=== PATIENT | female | born 1990 | race Caucasian/White ===

== ENCOUNTER 2020-10-06 14:20 | Inpatient (IN) | payer BC ==
[2020-10-06] MEDS ORDERED: AMPICILLIN 2,000 MG in SODIUM CHLORIDE 0.9% 100 ML IVPB STA (15:22)
[2020-10-06] MEDS ORDERED: CARBOPROST TROMETHAMINE 250 MCG/ML 1 ML AMP IM PRN (15:22)
[2020-10-06] MEDS ORDERED: OXYTOCIN 10 UNIT/ML 1 ML VIAL IM PRN (15:22)
[2020-10-06] MEDS ORDERED: METHYLERGONOVINE 0.2 MG/ML 1 ML AMP IM PRN (15:22)
[2020-10-06] MEDS ORDERED: TERBUTALINE 1 MG/ML VIAL SQ PRN (15:22)
[2020-10-06] MEDS ORDERED: LIDOCAINE 0.5% (PF) 5 MG/ML (50 ML SDV) SQ PRN (15:22)
[2020-10-06] MEDS ORDERED: LACTATED RINGERS 1,000 ML IV SCH (15:30)
[2020-10-06] MEDS: LACTATED RINGERS 1,000 ML IV SCH ×2 (15:50→19:44)
[2020-10-06 16:27] LABS: Basophils % (A) 0 %; Eosinophils # (A) 0.1 k/uL (0-0.7); Eosinophils % (A) 1 %; HCT 41.8 % (34.0-46.0); HGB 13.6 gm/dL (11.4-16.0); Lymphocytes # (A) 2.1 k/uL (1.0-4.8); Lymphocytes % (A) 15 %; MCH 28.5 pg (25.0-35.0); MCHC 32.5 g/dL (31.0-37.0); MCV 87.7 fL (80.0-100.0); Mean Platelet Volume 8.7; Monocytes # (A) 0.5 k/uL (0-1.0); Monocytes % (A) 3 %; Neutrophils # (A) 11.6 k/uL (1.3-7.7); Neutrophils % (A) 80 %; Platelet Count 293 k/uL (150-450); RBC 4.77 m/uL (3.80-5.40); RDW 14.9 % (11.5-15.5); WBC 14.5 k/uL (3.8-10.6)
[2020-10-06 16:33] LABS: Appearance,Urine Clear (Clear); Bacteria,Urine Rare /hpf; Bilirubin,Urine Negative (Negative); Blood,Urine Large (Negative); Color,Urine Yellow; Glucose,Urine (UA) Negative (Negative); Ketones,Urine 1+ (Negative); Leukocyte Esterase,Urine Trace (Negative); Mucus,Urine Occasional /hpf; Nitrite,Urine Negative (Negative); Protein,Urine 1+ (Negative); RBC,Urine 140 /hpf (0-5); Specific Gravity,Urine 1.026 (1.001-1.035); Squamous Epithelial Cell,Urine 5 /hpf (0-4); Urobilinogen,Urine <2.0 mg/dL (<2.0); WBC,Urine 10 /hpf (0-5)
[2020-10-06 16:34] LABS: ALT 25 U/L (4-34); AST 38 U/L (14-36); African American GFR (CKD) >90 (>60 ml/min/1.73 sqM); Blood Urea Nitrogen 8 mg/dL (7-17); LDH 617 U/L (313-618); Non-African American GFR(CKD) >90 (>60 ml/min/1.73 sqM)
[2020-10-06 16:40] LABS: Creatinine,Urine Random 212.3 mg/dL; Protein/Creatinine Ratio,Urine 0.141
[2020-10-06] MEDS: OXYTOCIN 30 UNITS/500 ML NS 30 UNIT in SALINE 1 500ML.BAG IV SCH (16:52)
[2020-10-06 17:05] LABS: Glucose,Whole Blood 78 mg/dL (75-99)
[2020-10-06] MEDS ORDERED: SODIUM CHLORIDE 0.9% 100 ML BAG ONE (19:15)
[2020-10-06] MEDS ORDERED: ROPIVACAINE 5MG/ML 20ML VIAL ONE (19:15)
[2020-10-06] MEDS ORDERED: fentaNYL (PF) 50 MCG/ML 5 ML AMP ONE (19:15)
[2020-10-06] MEDS: AMPICILLIN 1,000 MG in SODIUM CHLORIDE 0.9% 50 ML IVPB SCH (20:42)
[2020-10-07] MEDS ORDERED: diphenhydrAMINE 25 MG CAP PO PRN (00:08)
[2020-10-07] MEDS ORDERED: LANOLIN CREAM 5 GM TUBE TOPICAL PRN (00:08)
[2020-10-07] MEDS ORDERED: BENZOCAINE/MENTHOL SPRAY 1 GM/SPRAY AEROSOL TOPICAL PRN (00:08)
[2020-10-07] MEDS ORDERED: diphenhydrAMINE 50 MG/ML 1 ML VIAL IVP PRN ×2 (00:08)
[2020-10-07] MEDS ORDERED: diphenhydrAMINE 50 MG CAP PO PRN (00:08)
[2020-10-07] MEDS ORDERED: SIMETHICONE 80 MG CHEWABLE PO PRN (00:08)
[2020-10-07] MEDS ORDERED: HYDROCORTISONE 2.5% RECTAL CREAM 30 GM TUBE RECTAL PRN (00:08)
[2020-10-07] MEDS ORDERED: ZOLPIDEM 5 MG TAB PO PRN (00:08)
[2020-10-07] MEDS ORDERED: IBUPROFEN 600 MG TAB PO PRN (00:08)
--- NOTE | 2020-10-07 00:11 | P.HPOB ---
History of Present Illness H&P Date: 10/07/20 Chief Complaint: rupture of membranes Clarisse is a 30-year-old at 36 weeks gestation who ryes in labor following spontaneous rupture membranes earlier today. Her fluid has been noted. An Essure was positive. She is dilated 2-3 cm and 80% effaced. She is annie irregularly but is annie. Her course had been, K by gestational diabetes mellitus A1. She has been followed with maternal medicine has had nonstress test and very close monitoring throughout the latter part of the . She does have a group B strep positive status and antibiotics will be provided. Pertinent labs do include O+ blood type Rh and it was negative, rubella is immune, hepatitis B surface antigen was negative. She plans to use an epidural for analgesia. We'll plan Pitocin augmentation of labor. Spec spontaneous vaginal delivery. Category 1 tracing is noted. Past Medical History Past Medical History: No Reported History History of Any Multi-Drug Resistant Organisms: None Reported Past Surgical History: No Surgical Hx Reported Past Anesthesia/Blood Transfusion Reactions: No Reported Reaction Past Psychological History: No Psychological Hx Reported Smoking Status: Former smoker Past Drug Use History: None Reported - Past Family History Father Family Medical History: No Reported History Medications and Allergies Home Medications Medication Instructions Recorded Confirmed Type Pnv,Calcium 72/Iron/Folic Acid 1 each PO DAILY MDD 1 tab 10/06/20 10/06/20 History [ Plus Tablet] Allergies Allergy/AdvReac Type Severity Reaction Status Date / Time No Known Allergies Allergy Verified 10/06/20 15:19 Exam Osteopathic Statement: *. No significant issues noted on an osteopathic structural exam other than those noted in the History and Physical/Consult. Vital Signs Temp Pulse Resp BP Pulse Ox 10/06/20 16:15 97.6 F 111 H 18 136/88 99 10/06/20 14:30 97.6 F 111 H 18 136/88 99 Intake and Output 10/06/20 10/06/20 10/07/20 14:59 22:59 06:59 Output Total 200 Balance -200 Output: Urine 200 Other: Weight 107.501 kg - OBG Physical Exam Breast: both: normal (no masses) Abdomen: bowel sounds normal, no diffuse tenderness, no bruit present, no guarding noted, no hepatomegaly, no splenomegaly, no mass Vulva: both: normal Vagina: normal moisture, no discharge Cervix: no lesion, no discharge Uterus: normal size, normal contour Adnexa: both: normal Anus/Rectum: normal perianal skin, no rectal mass, no hemorrhoids, heme negative Results Result Diagrams: 10/06/20 16:05 10/06/20 16:05 Abnormal Lab Results - Last 24 Hours (Table) 10/06/20 10/06/20 10/06/20 Range/Units 15:50 16:05 16:05 WBC 14.5 H (3.8-10.6) k/uL Neutrophils # 11.6 H (1.3-7.7) k/uL AST 38 H (14-36) U/L Urine Protein 1+ H (Negative) Urine Ketones 1+ H (Negative) Urine Blood Large H (Negative) Ur Leukocyte Esterase Trace H (Negative) Urine RBC 140 H (0-5) /hpf Urine WBC 10 H (0-5) /hpf Ur Squamous Epith Cells 5 H (0-4) /hpf Urine Bacteria Rare H (None) /hpf Urine Mucus Occasional H (None) /hpf
--- NOTE | 2020-10-07 00:13 | P.PROBDLV ---
Vaginal Delivery Note - . Vaginal Delivery Note: Patient progressed complete and pushing with spontaneous vaginal delivery of a viable female over first repair perineal laceration. Following delivery of the head anterior posterior shoulders were easily delivered with gentle downward upper traction from right occiput anterior position. Once baby was fully delivered mouth nares were bulb suctioned and baby was placed on mother's abdomen where the umbilical cord was allowed to pulsate for 45 seconds prior to clamping and cutting. Nursery personnel was present to some care. Placenta was then delivered intact. Pitocin was added to the IV. First degree perineal laceration was then repaired with 3-0 Vicryl following 1% Xylocaine for analgesia. scores were 9 and 9 at one and 5 minutes respectively and the weight was 5 lbs. 11 oz. Both mother and baby are stable following delivery.
[2020-10-07] MEDS: OXYTOCIN 30 UNITS/500 ML NS 30 UNIT in SALINE 1 500ML.BAG IV SCH (00:22)
[2020-10-07] MEDS: AMPICILLIN 1,000 MG in SODIUM CHLORIDE 0.9% 50 ML IVPB SCH (01:34)
[2020-10-07] MEDS: ACETAMINOPHEN TAB 325 MG TAB PO PRN ×3 (03:18→20:24)
--- NOTE | 2020-10-07 06:43 | P.PNOBGVD ---
Subjective - Subjective Patient reports: Reports appetite normal, Reports voiding normally, Reports pain well controlled, Reports ambulating normally : doing well Objective - Latest Vital Signs Latest vital signs: Vital Signs Temp Pulse Resp BP Pulse Ox 10/07/20 04:20 98.1 F 94 16 137/70 98 10/07/20 02:14 98.3 F 111 H 16 149/68 97 10/07/20 01:30 102 H 16 142/65 10/07/20 01:00 104 H 16 120/69 99 10/07/20 00:45 108 H 16 125/75 10/07/20 00:30 98.7 F 105 H 16 120/64 10/07/20 00:20 120 H 10/07/20 00:15 116 H 129/68 10/07/20 00:00 120 H 16 131/72 10/06/20 16:15 97.6 F 111 H 18 136/88 99 10/06/20 14:30 97.6 F 111 H 18 136/88 99 Intake and Output 10/06/20 10/06/20 10/07/20 14:59 22:59 06:59 Intake Total 7.5 Output Total 400 Balance -392.5 Intake: Intake, IV Titration 7.5 Amount Oxytocin 30 Units/500 ml 7.5 Ns 30 unit In Saline 1 500ml.bag @ Per Protocol IV .Q0M [facility] Rx#:[id number] Output: Urine 200 Estimated Blood Loss 200 Other: Weight 107.501 kg - Exam Lungs: bilateral: normal Chest: Normal S1, Normal S2 Extremities: Present: normal Abdomen: Present: normal appearance, soft Uterus: Present: normal, firm - Labs Labs: Abnormal Lab Results - Last 24 Hours (Table) 10/06/20 10/06/20 10/06/20 Range/Units 15:50 16:05 16:05 WBC 14.5 H (3.8-10.6) k/uL Neutrophils # 11.6 H (1.3-7.7) k/uL AST 38 H (14-36) U/L Urine Protein 1+ H (Negative) Urine Ketones 1+ H (Negative) Urine Blood Large H (Negative) Ur Leukocyte Esterase Trace H (Negative) Urine RBC 140 H (0-5) /hpf Urine WBC 10 H (0-5) /hpf Ur Squamous Epith Cells 5 H (0-4) /hpf Urine Bacteria Rare H (None) /hpf Urine Mucus Occasional H (None) /hpf Assessment and Plan Assessment: Post day #1. Patient is resting without complaints. Vital signs are stable she is afebrile. Uterus is firm nontender and she is having normal lochia. My impression this is a normal course. Plan is to continue routine care will need to discharge home tomorrow (1) Normal vaginal delivery Current Visit: Yes Status: Acute Code(s): O80 - ENCOUNTER FOR FULL-TERM UNCOMPLICATED DELIVERY SNOMED Code(s): 74070459
[2020-10-07] MEDS: SENNOSIDES-DOCUSATE SODIUM 1 EACH TAB PO SCH ×2 (21:42→21:45)
--- NOTE | 2020-10-08 06:05 | P.PROBDLV ---
Vaginal Delivery Note - . Vaginal Delivery Note: Post Day #2. Patient is resting without complaints and wishes to go home. Vital signs are stable and she is afebrile. Plan is to continue routine care and discharge home later today.
--- NOTE | 2020-10-08 06:13 | P.DS ---
Providers Date of admission: 10/06/20 15:22 Expected date of discharge: 10/08/20 Attending physician: Jono Edward Primary care physician: Jono Edward - Discharge Diagnosis(es) (1) Normal vaginal delivery Current Visit: Yes Status: Acute Hospital Course: Please see dictated H&P for intimate details of this patients admission. Patient is admitted with PROM at 36wks and goes on to have a vaginal delivery of viable female infant. Discharged home on PPD #2 to followup with me in ~6 weeks. Procedures: Normal spontaneous vaginal delivery Patient Condition at Discharge: Good Plan - Discharge Summary Discharge Rx Participant: No New Discharge Prescriptions: New Ibuprofen [Motrin] 600 mg PO Q6HR PRN #30 tab PRN Reason: Mild Pain Or Fever >= 100.5 No Action Pnv,Calcium 72/Iron/Folic Acid [ Plus Tablet] 1 each PO DAILY MDD 1 tab Discharge Medication List Pnv,Calcium 72/Iron/Folic Acid [ Plus Tablet] 1 each PO DAILY MDD 1 tab 10/06/20 [History] Ibuprofen [Motrin] 600 mg PO Q6HR PRN #30 tab 10/08/20 [Rx] Follow up Appointment(s)/Referral(s): Jono Edward MD [Primary Care Provider] - 11/18/20 10:30 am Patient Instructions/Handouts: Vaginal Delivery (DC) Activity/Diet/Wound Care/Special Instructions: No intercourse or anything per vagina for 6 weeks. Please call if any fever, chills, excessive vaginal bleeding, and/or abdominal pain. Discharge Disposition: HOME SELF-CARE
[2020-10-08] MEDS: ACETAMINOPHEN TAB 325 MG TAB PO PRN (08:15)
[2020-10-08 08:28] VITALS: RESP 17
[2020-10-08] MEDS: SENNOSIDES-DOCUSATE SODIUM 1 EACH TAB PO SCH (08:39)
[2020-10-08 15:30] VITALS: BP 132/78; PULSE 80; TEMP 98.1
== END 2020-10-08 19:45 | disposition home or self-care (01) | DRG 807 ==
LOC: FBPOP 14:20 → 4FBP 15:22
PROVIDERS: ADMIT Obstetrics & Gynecology; ATTEND Obstetrics & Gynecology
PROC: 0HQ9XZZ Repair Perineum Skin, External Approach (ICD-10-PCS; principal; 2020-10-07)
PROC: 10E0XZZ Delivery of Products of Conception, External Approach (ICD-10-PCS; principal; 2020-10-07)
DX: O42.913 Preterm premature rupture of membranes, unspecified as to length of time between rupture and onset of labor, third trimester (principal); Z37.0 Single live birth; O70.0 First degree perineal laceration during delivery; O99.824 Streptococcus B carrier state complicating childbirth; Z3A.36 36 weeks gestation of pregnancy; O24.429 Gestational diabetes mellitus in childbirth, unspecified control; Z87.891 Personal history of nicotine dependence
CPT/HCPCS: 81001; 82565; 82570; 83615; 84156; 84450; 84460; 84520; 84550; 85025; 86850; 86900; 86901; 88307